=== PATIENT | female | born 1965 | race Caucasian/White ===

== ENCOUNTER 2019-08-15 14:35 | Emergency (ER) | payer MEDICAID ==
[~2019-08-15] VITALS: Ht 162.6 cm; Wt 79.4 kg
[~2019-08-15 14:35] MED LIST: AMLO2.5T7 PO; BENA5TAB5 PO; FURO40TA4 PO; GLIP5TAB12 PO; LEV100T PO; NAPR-223 PO
[2019-08-15 15:22] LABS: Basophils # (auto) 0 uL; Basophils % (auto) 0.5 % (0.0-2.0); Eosinophils # (auto) 0.4 uL; Eosinophils % (auto) 7.1 % (0.0-7.0); Hematocrit 43.9 % (36.0-46.0); Hemoglobin 14.8 g/dL (12.2-16.2); Lymphocytes # (auto) 1.4 uL; Lymphocytes % (auto) 25.2 % (10.0-50.0); Mean Corpuscular Hemoglobin 29.7 pg (28.0-32.0); Mean Corpuscular Hgb Conc. 33.7 g/dL (32.0-36.0); Mean Corpuscular Volume 88.3 fL (80.0-100.0); Monocytes # (auto) 0.5 uL; Monocytes % (auto) 8.6 % (0.0-12.0); Neutrophils # (auto) 3.3 uL; Neutrophils % (auto) 58.6 % (37.0-80.0); Nucleated Red Blood Cells % 0.1 %; Platelet Count (auto) 188 10^3/uL (140-450); Red Blood Cells 4.97 10^6/uL (4.0-5.20); Red Cell Distribution Width 13.9 % (11.8-14.3); White Blood Cell 5.6 10^3/uL (4.4-10.8)
[2019-08-15 15:34] LABS: Albumin 3.7 g/dL (3.4-5.0); Calcium 8.4 mg/dL (8.5-10.1); Potassium 3.8 mmol/L (3.5-5.1)
[2019-08-15 15:36] LABS: BUN/Creatinine Ratio 16.3
[2019-08-15 15:38] LABS: Bilirubin, Total 0.3 mg/dL (0.2-1.0)
[2019-08-15] MEDS ORDERED: ACETAMINOPHEN 325 MG TAB PO ONE (18:00)
[2019-08-15 18:28] LABS: Alcohol, Urine < 3.0 mg/dL (0-5); Amphetamine Screen, Urine NEGATIVE (NEGATIVE); Barbiturate Scree,Urine NEGATIVE (NEGATIVE); Benzodiazephine Screen, Urine NEGATIVE (NEGATIVE); Cannabinoid Screen, Urine NEGATIVE (NEGATIVE); Cocaine Screen, Urine NEGATIVE (NEGATIVE); Opiate Scree,Urine NEGATIVE (NEGATIVE); Phencyclidine Screen, Urine NEGATIVE (NEGATIVE)
[2019-08-15 19:00] VITALS: BP 131/77
[2019-08-15] MEDS ORDERED: THIAMINE 100mg/ml INJ (200mg/2ml VIAL) IV ONE (19:15)
[2019-08-15] MEDS ORDERED: THIAMINE HCL 100 MG TAB PO ONE (20:15)
== END 2019-08-15 20:15 | disposition home or self-care (01) ==
LOC: ER 14:42
DX: S16.1XXA Strain of muscle, fascia and tendon at neck level, initial encounter (principal); M50.30 Other cervical disc degeneration, unspecified cervical region; F10.20 Alcohol dependence, uncomplicated; R55 Syncope and collapse; F32.9 Major depressive disorder, single episode, unspecified; E11.9 Type 2 diabetes mellitus without complications; I10 Essential (primary) hypertension; E07.9 Disorder of thyroid, unspecified; F17.210 Nicotine dependence, cigarettes, uncomplicated; Y90.0 Blood alcohol level of less than 20 mg/100 ml
CPT/HCPCS: 36415; 70450; 72125; 80053; 80307; 80320; 85025; 94761

== ENCOUNTER → 2020-01-23 | Emergency (ER) | payer MEDICAID ==
[~2020-01-23] VITALS: Ht 162.6 cm; Wt 86.2 kg
[2020-01-23 11:34] VITALS: BP 167/111
[2020-01-23 12:19] LABS: Basophils # (auto) 0.1 10 ^3/uL (0-0.2); Basophils % (auto) 1.2 % (0.0-2.0); Eosinophils # (auto) 0.1 10 ^3/uL (0-0.8); Eosinophils % (auto) 2.9 % (0.0-7.0); Hematocrit 43.6 % (36.0-46.0); Hemoglobin 15.3 g/dL (12.2-16.2); Lymphocytes # (auto) 1.3 10 ^3/uL (0.4-5.4); Lymphocytes % (auto) 30.4 % (10.0-50.0); Mean Corpuscular Hemoglobin 32.6 pg (28.0-32.0); Mean Corpuscular Volume 93.2 fL (80.0-100.0); Monocytes # (auto) 0.4 10 ^3/uL (0-1.3); Neutrophils # (auto) 2.5 10 ^3/uL (1.6-8.6); Neutrophils % (auto) 57.5 % (37.0-80.0); Platelet Count (auto) 149 10^3/uL (140-450); Red Blood Cells 4.68 10^6/uL (4.0-5.20); Red Cell Distribution Width 13.5 % (11.8-14.3); White Blood Cell 4.4 10^3/uL (4.4-10.8)
[2020-01-23 12:41] LABS: Albumin 3.6 g/dL (3.4-5.0); Calcium 8.4 mg/dL (8.5-10.1); Potassium 3.9 mmol/L (3.5-5.1)
[2020-01-23 12:44] LABS: BUN/Creatinine Ratio 13.7; Bilirubin, Total 0.4 mg/dL (0.2-1.0); Total Protein 7.3 g/dL (6.4-8.2)
== END | disposition home or self-care (01) ==
LOC: ER 11:11
DX: J20.9 Acute bronchitis, unspecified (principal); E11.9 Type 2 diabetes mellitus without complications; I10 Essential (primary) hypertension; Z79.899 Other long term (current) drug therapy
CPT/HCPCS: 36415; 71045; 80053; 85025; 85379; 87070; 87804; 87880; 93005

== ENCOUNTER → 2020-04-01 | Emergency (ER) | payer MEDICAID ==
[~2020-04-01] VITALS: Ht 162.6 cm; Wt 86.2 kg
[~2020-04-01] MED LIST changes: +SODIUM CHLORIDE 0.9% 1,000 ML IV ONE; +cefTRIAXone 1GM/50ML D5W 50 ML IV ONE
[2020-04-01 22:18] LABS: Basophils # (auto) 0 10 ^3/uL (0-0.2); Basophils % (auto) 0.8 % (0.0-2.0); Eosinophils # (auto) 0.1 10 ^3/uL (0-0.8); Eosinophils % (auto) 2.2 % (0.0-7.0); Hematocrit 46.7 % (36.0-46.0); Hemoglobin 15.4 g/dL (12.2-16.2); Lymphocytes # (auto) 1.1 10 ^3/uL (0.4-5.4); Lymphocytes % (auto) 24.8 % (10.0-50.0); Mean Corpuscular Hemoglobin 32.1 pg (28.0-32.0); Mean Corpuscular Hgb Conc. 33.1 g/dL (32.0-36.0); Monocytes # (auto) 0.3 10 ^3/uL (0-1.3); Monocytes % (auto) 7.6 % (0.0-12.0); Neutrophils # (auto) 2.8 10 ^3/uL (1.6-8.6); Neutrophils % (auto) 64.6 % (37.0-80.0); Nucleated Red Blood Cells % 0.1 %; Platelet Count (auto) 151 10^3/uL (140-450); Red Blood Cells 4.81 10^6/uL (4.0-5.20); Red Cell Distribution Width 13.9 % (11.8-14.3); White Blood Cell 4.4 10^3/uL (4.4-10.8)
[2020-04-01 22:29] LABS: Urine Bacteria FEW /hpf (None Seen); Urine Blood TRACE /uL (Negative); Urine Specific Gravity 1.036 (1.001-1.035); Urine WBC 15 /hpf (0 - 5)
[2020-04-01 22:37] LABS: Chloride 104 mmol/L (98-107); Sodium 135 mmol/L (136-145)
[2020-04-01 22:42] LABS: Alanine Aminotransferase 117 U/L (13-56); Albumin 3.8 g/dL (3.4-5.0); Anion Gap 12 (5-15); Aspartate Aminotransferase 87 U/L (15-37); BUN/Creatinine Ratio 12.5; Blood Urea Nitrogen 11 mg/dL (7-18); Calcium 8.8 mg/dL (8.5-10.1); Carbon Dioxide 19 mmol/L (21-32); GFR African American 86 mL/min; GFR Non-African American 71 mL/min; Glucose 292 mg/dL (74-106)
[2020-04-01 22:46] LABS: Lactic Acid w/Reflex 2.2 mmol/L (0.4-2.0)
[2020-04-01 22:56] LABS: Alkaline Phosphatase 125 U/L (45-117); Bilirubin, Total 0.5 mg/dL (0.2-1.0); Total Protein 7.4 g/dL (6.4-8.2)
[2020-04-02 01:00] VITALS: BP 148/68
== END | disposition home or self-care (01) ==
LOC: ER 20:02
DX: B34.9 Viral infection, unspecified (principal); N39.0 Urinary tract infection, site not specified; Z20.828 Contact with and (suspected) exposure to other viral communicable diseases; E11.9 Type 2 diabetes mellitus without complications; I10 Essential (primary) hypertension; E07.9 Disorder of thyroid, unspecified; F17.210 Nicotine dependence, cigarettes, uncomplicated
CPT/HCPCS: 36415; 71045; 80053; 81001; 82728; 83605; 84484; 85025; 86141; 87040; 87070; 87635; 87804; 87880; 96365; 99284; J0696; J7030; U0003

== ENCOUNTER 2020-08-24 17:24 | Emergency (ER) | payer MEDICAID ==
[~2020-08-24] VITALS: Ht 162.6 cm; Wt 90.3 kg
[~2020-08-24 17:24] MED LIST changes: +AMLO-483 PO; -AMLO2.5T7 PO; -SODIUM CHLORIDE 0.9% 1,000 ML IV ONE; -cefTRIAXone 1GM/50ML D5W 50 ML IV ONE
[2020-08-24 17:50] VITALS: BP 125/71
[2020-08-24] MEDS ORDERED: SODIUM CHLORIDE 0.9% 1,000 ML IV ONE (18:30)
[2020-08-24] MEDS ORDERED: PANTOPRAZOLE 40 MG/10 ML VIAL INJ IV ONE (18:30)
== END 2020-08-24 20:00 | disposition left against medical advice (07) ==
LOC: ER 17:24
DX: K92.2 Gastrointestinal hemorrhage, unspecified (principal); E11.65 Type 2 diabetes mellitus with hyperglycemia; I10 Essential (primary) hypertension; F17.210 Nicotine dependence, cigarettes, uncomplicated; Z86.2 Personal history of diseases of the blood and blood-forming organs and certain disorders involving the immune mechanism; Z98.890 Other specified postprocedural states; Z79.899 Other long term (current) drug therapy; Z88.2 Allergy status to sulfonamides
CPT/HCPCS: 93005

== ENCOUNTER 2022-02-05 11:06 | Inpatient (IN) | payer MEDICAID ==
[~2022-02-05] VITALS: Ht 162.6 cm; Wt 86.8 kg
[~2022-02-05 11:06] MED LIST changes: -BENA5TAB5 PO; +BENA5TAB9 PO
[2022-02-05] MEDS ORDERED: LACTATED RINGER'S 1,000 ML IV ONE ×3 (12:30→15:15)
[2022-02-05 13:14] LABS: Red Cell Distribution Width 13.9 % (11.8-14.3)
[2022-02-05 13:16] LABS: Hematocrit 47.8 % (36.0-46.0); Hemoglobin 15.2 g/dL (12.2-16.2); Mean Corpuscular Hemoglobin 35.7 pg (28.0-32.0); Mean Corpuscular Hgb Conc. 31.8 g/dL (32.0-36.0); Mean Corpuscular Volume 112.1 fL (80.0-100.0); Red Blood Cells 4.27 10^6/uL (4.0-5.20); White Blood Cell 10.5 10^3/uL (4.4-10.8)
[2022-02-05 13:26] LABS: Basophils % (manual) 0 (0.0-2.0); Blast Cells 0; Eosinophils % (manual) 0 (0-7); Myelocytes % 0; Promyelocytes % 0; Reactive Lymphocytes 0
[2022-02-05 13:29] LABS: Albumin 4.1 g/dL (3.4-5.0); BUN/Creatinine Ratio 13.1; Calcium 9.1 mg/dL (8.5-10.1); Potassium 4.8 mmol/L (3.5-5.1)
[2022-02-05 13:32] LABS: Bilirubin, Total 4.4 mg/dL (0.2-1.0); Total Protein 7.9 g/dL (6.4-8.2)
[2022-02-05 14:08] LABS: Band Neutrophils % (manual) 36; Lymphocytes % (manual) 8 (10.0-50.0); Metamyelocytes % 1; Monocytes % (manual) 13 (0-12)
[2022-02-05] MEDS ORDERED: ONDANSETRON HCL 4 MG/2 ML VIAL IV ONE (15:15)
[2022-02-05] MEDS ORDERED: DEXTROSE (50%) 50ML SYRG IV PRN (15:30)
[2022-02-05] MEDS ORDERED: INSULIN LANTUS (GLARGINE) 1 /0.01ml (100units/ml) SC ONE (15:30)
[2022-02-05] MEDS: InsuLIN R (HUMAN) 100 UNITS in SODIUM CHL 0.9% 99 ML IV SCH (16:17)
[2022-02-05] MEDS ORDERED: ACCU-CHEK COMFORT CURVE STRIP VI SCH (16:30)
[2022-02-05 16:36] LABS: BUN/Creatinine Ratio 16.3; Calcium 8.8 mg/dL (8.5-10.1); Potassium 4.6 mmol/L (3.5-5.1)
[2022-02-05] MEDS ORDERED: NITROGLYCERIN 0.4 MG SL TAB SL PRN (17:00)
[2022-02-05] MEDS ORDERED: MORPHINE SULFATE INJECTION 2 MG/ML SYRG IV PRN ×2 (17:00→18:45)
[2022-02-05] MEDS ORDERED: LORazepam 2MG/ML-1ML VIAL IV ONE (17:30)
[2022-02-05] MEDS ORDERED: PANTOPRAZOLE 40 MG/10 ML VIAL INJ IV ONE (17:30)
[2022-02-05] MEDS: SODIUM CHLORIDE 0.9% 1,000 ML IV SCH ×2 (17:42→22:03)
[2022-02-05] MEDS: ACCU-CHEK COMFORT CURVE STRIP VI SCH ×4 (18:02→22:54)
[2022-02-05] MEDS ORDERED: LORazepam 0.5 MG TAB PO PRN (18:45)
[2022-02-05] MEDS ORDERED: cefTRIAXone 1GM/50ML D5W 50 ML IV ONE (18:45)
[2022-02-05] MEDS ORDERED: hydrALAZINE HCL 20 MG/ML VL IV PRN (18:45)
[2022-02-05] MEDS ORDERED: SODIUM CHLORIDE 0.9% 2,000 ML IV ONE (18:45)
[2022-02-05] MEDS ORDERED: SOD CHL 0.9%/ KCL 20MEQ 1,000 ML IV PRN (18:45)
[2022-02-05] MEDS ORDERED: THIAMINE 100mg/ml INJ (200mg/2ml VIAL) IV ONE (18:45)
[2022-02-05] MEDS ORDERED: HYDROcodone-ACET 5/325MG TAB PO PRN (18:45)
[2022-02-05] MEDS ORDERED: ONDANSETRON HCL 4 MG/2 ML VIAL IV PRN (18:45)
[2022-02-05] MEDS ORDERED: DOCUSATE SOD 100 MG CAP PO PRN (18:45)
[2022-02-05] MEDS ORDERED: FOLIC ACID 1 MG TAB PO ONE (18:45)
[2022-02-05] MEDS ORDERED: MULTIPLE VITAMINS W/ MINERALS TAB PO ONE (18:45)
[2022-02-05 19:07] LABS: Magnesium 2.3 mg/dL (1.6-2.6); Phosphorus 4.6 mg/dL (2.5-4.90)
[2022-02-05] MEDS: chlordiazePOXIDE HCL 25 MG CAP PO SCH (20:00)
[2022-02-05 20:38] LABS: INR 1.17 (0.9-1.15); Partial Thromboplastin Time 26.8 sec (23.6-33.0)
[2022-02-05] MEDS ORDERED: ATORVASTATIN 20 MG TAB PO SCH (22:00)
[2022-02-05 23:53] LABS: BUN/Creatinine Ratio 18.7; Calcium 8.4 mg/dL (8.5-10.1); Potassium 3.9 mmol/L (3.5-5.1)
[2022-02-06] VITALS (68 sets, daily range): BP systolic 103–158; BP diastolic 39–87
[2022-02-06] MEDS: ACCU-CHEK COMFORT CURVE STRIP VI SCH ×15 (00:09→23:19)
[2022-02-06 01:53] LABS: Calcium 8.3 mg/dL (8.5-10.1); Potassium 3.8 mmol/L (3.5-5.1)
[2022-02-06] MEDS: SODIUM CHLORIDE 0.9% 1,000 ML IV SCH ×5 (03:01→23:12)
[2022-02-06] MEDS ORDERED: dilTIAZem 25 MG/5 ML VIAL IV ONE (04:30)
[2022-02-06] MEDS ORDERED: CLINDAMYCIN 600MG IV 50 ML IV SCH (06:00)
[2022-02-06 06:10] LABS: Basophils # (auto) 0 10 ^3/uL (0-0.2); Eosinophils # (auto) 0 10 ^3/uL (0-0.8); Lymphocytes # (auto) 0.1 10 ^3/uL (0.4-5.4); Monocytes # (auto) 0.5 10 ^3/uL (0-1.3); Neutrophils # (auto) 3.8 10 ^3/uL (1.6-8.6); White Blood Cell 4.4 10^3/uL (4.4-10.8)
[2022-02-06 06:12] LABS: Basophils % (auto) 0.1 % (0.0-2.0); Eosinophils % (auto) 0.1 % (0.0-7.0); Hematocrit 42.3 % (36.0-46.0); Hemoglobin 14.7 g/dL (12.2-16.2); Mean Corpuscular Hemoglobin 36.4 pg (28.0-32.0); Mean Corpuscular Hgb Conc. 34.7 g/dL (32.0-36.0); Mean Corpuscular Volume 105.1 fL (80.0-100.0); Monocytes % (auto) 11.5 % (0.0-12.0); Neutrophils % (auto) 86.3 % (37.0-80.0); Nucleated Red Blood Cells % 0.3 %; Red Blood Cells 4.02 10^6/uL (4.0-5.20); Red Cell Distribution Width 13.5 % (11.8-14.3)
[2022-02-06 06:33] LABS: Magnesium 1.4 mg/dL (1.6-2.6); Potassium 3.1 mmol/L (3.5-5.1)
[2022-02-06 06:36] LABS: INR 1.21 (0.9-1.15)
[2022-02-06 06:46] LABS: Albumin 3.4 g/dL (3.4-5.0); Bilirubin, Total 3.5 mg/dL (0.2-1.0); CRP High Sensitivity 15.3 mg/dL (< 0.3); Calcium 8.8 mg/dL (8.5-10.1); Total Protein 6.7 g/dL (6.4-8.2); Uric Acid 6.3 mg/dL (2.6-6.0)
[2022-02-06 06:50] LABS: Phosphorus 0.2 mg/dL (2.5-4.90)
[2022-02-06] MEDS: chlordiazePOXIDE HCL 25 MG CAP PO SCH ×3 (07:46→21:08)
[2022-02-06] MEDS ORDERED: cefTRIAXone 1GM/50ML D5W 50 ML IV SCH (09:00)
[2022-02-06] MEDS: CHOLECALCIFEROL (VITD3) 2,000 UNIT CAP/TAB PO SCH (09:10)
[2022-02-06] MEDS: ASPirin 81 mg TAB PO SCH (09:10)
[2022-02-06] MEDS: THIAMINE HCL 100 MG TAB PO SCH (09:10)
[2022-02-06] MEDS: FOLIC ACID 1 MG TAB PO SCH (09:10)
[2022-02-06] MEDS: MULTIPLE VITAMINS W/ MINERALS TAB PO SCH (09:10)
[2022-02-06 09:15] LABS: Urine WBC None Seen /hpf (0 - 5)
[2022-02-06 09:34] LABS: Urine Amorphous Crystal FEW /hpf (None Seen); Urine Bacteria FEW /hpf (None Seen); Urine Blood 1+ /uL (Negative); Urine Budding Yeast FEW /hpf (None Seen); Urine Specific Gravity 1.011 (1.001-1.035)
[2022-02-06] MEDS ORDERED: INSULIN LANTUS (GLARGINE) 1 /0.01ml (100units/ml) SC SCH (10:00)
[2022-02-06] MEDS ORDERED: PANTOPRAZOLE 40 MG/10 ML VIAL INJ IV SCH (10:00)
[2022-02-06] MEDS ORDERED: ENOXAPARIN SOD 40 MG/0.4 ML SYRINGE SC SCH (10:00)
[2022-02-06 10:06] LABS: Alcohol, Urine < 3.0 mg/dL (0-10); Amphetamine Screen, Urine NEGATIVE (NEGATIVE); Barbiturate Scree,Urine NEGATIVE (NEGATIVE); Benzodiazephine Screen, Urine NEGATIVE (NEGATIVE); Cannabinoid Screen, Urine NEGATIVE (NEGATIVE); Cocaine Screen, Urine NEGATIVE (NEGATIVE); Opiate Scree,Urine NEGATIVE (NEGATIVE); Phencyclidine Screen, Urine NEGATIVE (NEGATIVE); Protein, Urine 93.3 mg/dL (0.0-11.9)
[2022-02-06 10:56] LABS: Calcium 8.4 mg/dL (8.5-10.1)
[2022-02-06 11:00] LABS: BUN/Creatinine Ratio 16.3
[2022-02-06 11:04] LABS: Potassium 2.8 mmol/L (3.5-5.1)
[2022-02-06] MEDS ORDERED: POTASSIUM EFFERVESENT TAB 25 MEQ PO ONE (11:15)
[2022-02-06] MEDS ORDERED: CYA100I PO (13:38)
[2022-02-06] MEDS ORDERED: METF-370 PO (13:38)
[2022-02-06] MEDS ORDERED: ALOG1TAB2 PO (13:38)
[2022-02-06] MEDS ORDERED: GABA300C10 PO (13:38)
[2022-02-06] MEDS ORDERED: CHOL20007 PO (13:38)
[2022-02-06] MEDS ORDERED: PIOG15TA25 PO (13:38)
[2022-02-06] MEDS ORDERED: SENN1TAB14 PO (13:38)
[2022-02-06] MEDS ORDERED: MAGN400T40 OR (13:38)
[2022-02-06] MEDS ORDERED: BUPR75TA10 PO (13:38)
[2022-02-06] MEDS ORDERED: NUTRTAB41 OR (13:38)
[2022-02-06] MEDS ORDERED: BENA20TA14 PO (13:38)
[2022-02-06] MEDS ORDERED: VITA80009 PO (13:38)
[2022-02-06] MEDS ORDERED: ERTU5TAB PO (13:38)
[2022-02-06 14:08] LABS: Hepatitis B Surface Antibody Negative (Negative)
[2022-02-06 14:46] LABS: Hepatitis A Total Antibody Positive (Negative)
[2022-02-06] MEDS: InsuLIN R (HUMAN) 100 UNITS in SODIUM CHL 0.9% 99 ML IV SCH (15:30)
[2022-02-06 16:10] LABS: Hepatitis C Antibody Negative (Negative)
[2022-02-06 16:55] LABS: Calcium 8.4 mg/dL (8.5-10.1); Magnesium 1.8 mg/dL (1.6-2.6)
[2022-02-06 17:00] LABS: Phosphorus 0.4 mg/dL (2.5-4.90); Potassium 2.8 mmol/L (3.5-5.1)
[2022-02-06] MEDS ORDERED: SODIUM PHOSPHATES 20 MEQ in SODIUM CHL 0.9% 100 ML IV ONE (17:30)
[2022-02-06] MEDS: POTASSIUM CHL 20MEQ/100ML 100 ML IV SCH ×2 (18:18→21:06)
[2022-02-06] MEDS ORDERED: DEXTROSE (50%) 50ML SYRG IV PRN (18:30)
[2022-02-06] MEDS: InsuLIN REG 1unit/0.01ml Soln (100units/ml) SC SCH ×2 (19:39→23:19)
[2022-02-06] MEDS: LORazepam 2MG/ML-1ML VIAL IV PRN (22:26)
[2022-02-07] VITALS (58 sets, daily range): BP systolic 107–162; BP diastolic 39–88
[2022-02-07] MEDS: ACCU-CHEK COMFORT CURVE STRIP VI SCH ×5 (03:13→20:00)
[2022-02-07] MEDS: InsuLIN REG 1unit/0.01ml Soln (100units/ml) SC SCH ×5 (03:14→20:00)
[2022-02-07] MEDS: SODIUM CHLORIDE 0.9% 1,000 ML IV SCH ×4 (04:00→19:00)
[2022-02-07] MEDS: LORazepam 2MG/ML-1ML VIAL IV PRN ×2 (04:22→22:24)
[2022-02-07 04:34] LABS: Hemoglobin 14.4 g/dL (12.2-16.2); Mean Corpuscular Hemoglobin 36.1 pg (28.0-32.0); Red Cell Distribution Width 13.7 % (11.8-14.3)
[2022-02-07 04:35] LABS: Hematocrit 42.2 % (36.0-46.0); Mean Corpuscular Volume 106.1 fL (80.0-100.0); Red Blood Cells 3.98 10^6/uL (4.0-5.20); White Blood Cell 5.7 10^3/uL (4.4-10.8)
[2022-02-07 04:38] LABS: Albumin 2.7 g/dL (3.4-5.0); Calcium 8.2 mg/dL (8.5-10.1); Potassium 3.7 mmol/L (3.5-5.1)
[2022-02-07 04:42] LABS: BUN/Creatinine Ratio 17.6; Bilirubin, Direct 1.6 mg/dL (0-0.2); Bilirubin, Total 2.3 mg/dL (0.2-1.0)
[2022-02-07 04:49] LABS: Basophils % (manual) 0 (0.0-2.0); Blast Cells 0; Eosinophils % (manual) 0 (0-7); Myelocytes % 0; Promyelocytes % 0; Reactive Lymphocytes 0
[2022-02-07 05:13] LABS: Band Neutrophils % (manual) 41; Lymphocytes % (manual) 11 (10.0-50.0); Metamyelocytes % 2; Monocytes % (manual) 18 (0-12)
[2022-02-07] MEDS ORDERED: SODIUM PHOSPHATES 40 MEQ in D5W 5% 250 ML IV ONE (08:00)
[2022-02-07] MEDS ORDERED: POTASSIUM PHOSPHATE 44 MEQ in D5W 5% 250 ML IV ONE (08:30)
[2022-02-07] MEDS ORDERED: POTASSIUM PHOSPHATE 22 MEQ in SODIUM CHL 0.9% 100 ML IV ONE (08:30)
[2022-02-07] MEDS ORDERED: D5W 5% IV ONE ×2 (08:45)
[2022-02-07] MEDS ORDERED: POTASSIUM PHOSPHATE IV ONE ×2 (08:45)
[2022-02-07] MEDS: ASPirin 81 mg TAB PO SCH (09:55)
[2022-02-07] MEDS: FAMOTIDINE 20 MG TAB PO SCH (09:56)
[2022-02-07] MEDS: chlordiazePOXIDE HCL 25 MG CAP PO SCH ×2 (09:56→21:51)
[2022-02-07] MEDS: MULTIPLE VITAMINS W/ MINERALS TAB PO SCH (09:56)
[2022-02-07] MEDS: THIAMINE HCL 100 MG TAB PO SCH (09:56)
[2022-02-07] MEDS: CHOLECALCIFEROL (VITD3) 2,000 UNIT CAP/TAB PO SCH (09:56)
[2022-02-07] MEDS: FOLIC ACID 1 MG TAB PO SCH (09:57)
[2022-02-07] MEDS ORDERED: LEVOTHYROXINE SODIUM 100 MCG/5 ML INJ IV ONE (15:00)
[2022-02-07] MEDS ORDERED: ERGOCALCIFEROL 50,000 UNIT(1.25MG) CAP PO SCH (15:00)
[2022-02-07] MEDS: D5W/SOD CHLO 0.9% 1,000 ML IV PRN (20:34)
[2022-02-08] VITALS (23 sets, daily range): BP systolic 124–178; BP diastolic 60–104
[2022-02-08] MEDS: ACCU-CHEK COMFORT CURVE STRIP VI SCH ×6 (00:22→20:00)
[2022-02-08] MEDS: InsuLIN REG 1unit/0.01ml Soln (100units/ml) SC SCH ×6 (00:27→20:00)
[2022-02-08] MEDS: D5W/SOD CHLO 0.9% 1,000 ML IV PRN ×3 (02:52→17:16)
[2022-02-08 04:11] LABS: Basophils # (auto) 0 10 ^3/uL (0-0.2); Eosinophils # (auto) 0 10 ^3/uL (0-0.8); Eosinophils % (auto) 0.4 % (0.0-7.0); Lymphocytes # (auto) 0.4 10 ^3/uL (0.4-5.4); Monocytes # (auto) 0.4 10 ^3/uL (0-1.3); Neutrophils # (auto) 2.7 10 ^3/uL (1.6-8.6); White Blood Cell 3.5 10^3/uL (4.4-10.8)
[2022-02-08 04:13] LABS: Basophils % (auto) 0.3 % (0.0-2.0); Hematocrit 34.6 % (36.0-46.0); Hemoglobin 11.9 g/dL (12.2-16.2); Lymphocytes % (auto) 10.6 % (10.0-50.0); Mean Corpuscular Hgb Conc. 34.3 g/dL (32.0-36.0); Mean Corpuscular Volume 104.8 fL (80.0-100.0); Monocytes % (auto) 12.3 % (0.0-12.0); Neutrophils % (auto) 76.4 % (37.0-80.0); Nucleated Red Blood Cells % 0.1 %; Red Cell Distribution Width 13.4 % (11.8-14.3)
[2022-02-08] MEDS: LORazepam 2MG/ML-1ML VIAL IV PRN ×2 (04:32→19:21)
[2022-02-08 04:35] LABS: INR 1.16 (0.9-1.15)
[2022-02-08 04:36] LABS: Albumin 2.5 g/dL (3.4-5.0); BUN/Creatinine Ratio 13.8; Calcium 7.9 mg/dL (8.5-10.1); Magnesium 1.8 mg/dL (1.6-2.6)
[2022-02-08 04:50] LABS: Bilirubin, Total 1.9 mg/dL (0.2-1.0); Total Protein 5.3 g/dL (6.4-8.2)
[2022-02-08] MEDS: SODIUM CHLORIDE 0.9% 1,000 ML IV SCH ×4 (05:00→15:00)
[2022-02-08 05:02] LABS: Phosphorus 0.8 mg/dL (2.5-4.90)
[2022-02-08] MEDS ORDERED: POTASSIUM PHOSPHATE 44 MEQ in D5W 5% 250 ML IV ONE (08:15)
[2022-02-08] MEDS ORDERED: POTASSIUM CHL 20 Meq TABLET PO ONE (08:15)
[2022-02-08] MEDS: FAMOTIDINE 20 MG TAB PO SCH (09:09)
[2022-02-08] MEDS: MAGNESIUM SULFATE 1GM/100ML 100 ML IV SCH ×2 (09:09→11:15)
[2022-02-08] MEDS: LEVOTHYROXINE SODIUM 100 MCG/5 ML INJ IV SCH (09:09)
[2022-02-08] MEDS: FOLIC ACID 1 MG TAB PO SCH (09:10)
[2022-02-08] MEDS: ASPirin 81 mg TAB PO SCH (09:10)
[2022-02-08] MEDS: THIAMINE HCL 100 MG TAB PO SCH (09:10)
[2022-02-08] MEDS: CHOLECALCIFEROL (VITD3) 2,000 UNIT CAP/TAB PO SCH (09:11)
[2022-02-08] MEDS: MULTIPLE VITAMINS W/ MINERALS TAB PO SCH (09:11)
[2022-02-08] MEDS: chlordiazePOXIDE HCL 25 MG CAP PO SCH (09:11)
[2022-02-09] MEDS: ACCU-CHEK COMFORT CURVE STRIP VI SCH ×7 (00:02→23:56)
[2022-02-09] MEDS: InsuLIN REG 1unit/0.01ml Soln (100units/ml) SC SCH ×7 (00:03→23:56)
[2022-02-09] MEDS: LORazepam 2MG/ML-1ML VIAL IV PRN ×2 (01:56→23:55)
[2022-02-09 05:00] VITALS: BP 139/80
[2022-02-09 05:35] LABS: Mean Corpuscular Volume 103.9 fL (80.0-100.0); White Blood Cell 3.5 10^3/uL (4.4-10.8)
[2022-02-09 05:43] LABS: Hematocrit 34.3 % (36.0-46.0); Hemoglobin 11.8 g/dL (12.2-16.2); Mean Corpuscular Hemoglobin 35.7 pg (28.0-32.0); Mean Corpuscular Hgb Conc. 34.4 g/dL (32.0-36.0); Red Cell Distribution Width 14.1 % (11.8-14.3)
[2022-02-09 05:46] LABS: Basophils % (manual) 0 (0.0-2.0); Blast Cells 0; Myelocytes % 0; Promyelocytes % 0; Reactive Lymphocytes 0
[2022-02-09 06:09] LABS: BUN/Creatinine Ratio 14.7; Calcium 8.2 mg/dL (8.5-10.1); Magnesium 2.1 mg/dL (1.6-2.6); Phosphorus 1.4 mg/dL (2.5-4.90)
[2022-02-09 06:12] LABS: Potassium 2.8 mmol/L (3.5-5.1)
[2022-02-09] MEDS ORDERED: chlordiazePOXIDE HCL 25 MG CAP PO SCH (07:00)
[2022-02-09 07:59] LABS: Band Neutrophils % (manual) 20; Eosinophils % (manual) 1 (0-7); Lymphocytes % (manual) 20 (10.0-50.0); Metamyelocytes % 2; Monocytes % (manual) 13 (0-12)
[2022-02-09 08:34] VITALS: BP 129/70
[2022-02-09] MEDS: MULTIPLE VITAMINS W/ MINERALS TAB PO SCH (10:26)
[2022-02-09] MEDS: LEVOTHYROXINE SODIUM 100 MCG/5 ML INJ IV SCH (10:26)
[2022-02-09] MEDS: ASPirin 81 mg TAB PO SCH (10:27)
[2022-02-09] MEDS: FOLIC ACID 1 MG TAB PO SCH (10:27)
[2022-02-09] MEDS: CHOLECALCIFEROL (VITD3) 2,000 UNIT CAP/TAB PO SCH (10:27)
[2022-02-09] MEDS: THIAMINE HCL 100 MG TAB PO SCH (10:27)
[2022-02-09] MEDS: FAMOTIDINE 20 MG TAB PO SCH (10:28)
[2022-02-09 12:41] VITALS: BP 143/84
[2022-02-09 17:14] VITALS: BP 148/68
[2022-02-09] MEDS: POTASSIUM CHL 20MEQ/100ML 100 ML IV SCH ×2 (19:37→23:01)
[2022-02-09 22:00] VITALS: BP 144/82
[2022-02-10] MEDS: ACCU-CHEK COMFORT CURVE STRIP VI SCH ×5 (03:49→20:41)
[2022-02-10] MEDS: POTASSIUM CHL 20MEQ/100ML 100 ML IV SCH ×2 (03:49→07:07)
[2022-02-10] MEDS: InsuLIN REG 1unit/0.01ml Soln (100units/ml) SC SCH ×5 (03:50→20:42)
[2022-02-10 05:22] VITALS: BP 155/92
[2022-02-10] MEDS: LEVOTHYROXINE SODIUM 100 MCG TAB PO SCH (07:07)
[2022-02-10 08:00] VITALS: BP 135/65
[2022-02-10] MEDS: THIAMINE HCL 100 MG TAB PO SCH (09:28)
[2022-02-10] MEDS: ASPirin 81 mg TAB PO SCH (09:28)
[2022-02-10] MEDS: MULTIPLE VITAMINS W/ MINERALS TAB PO SCH (09:29)
[2022-02-10] MEDS: FOLIC ACID 1 MG TAB PO SCH (09:29)
[2022-02-10] MEDS: CHOLECALCIFEROL (VITD3) 2,000 UNIT CAP/TAB PO SCH (09:29)
[2022-02-10] MEDS: FAMOTIDINE 20 MG TAB PO SCH (09:29)
[2022-02-10] MEDS ORDERED: POTASSIUM PHOSPHATE 26.4 MEQ in SODIUM CHL 0.9% 100 ML IV ONE (15:00)
[2022-02-10] MEDS ORDERED: POLYETHYLENE GLYCOL 17 GM PWDR PO ONE ×2 (18:05→18:06)
[2022-02-10 22:00] VITALS: BP 143/80
[2022-02-11] MEDS: InsuLIN REG 1unit/0.01ml Soln (100units/ml) SC SCH ×4 (00:21→11:54)
[2022-02-11] MEDS: ACCU-CHEK COMFORT CURVE STRIP VI SCH ×4 (00:27→11:52)
[2022-02-11 05:00] VITALS: BP 152/92
[2022-02-11 05:42] LABS: Potassium 3.4 mmol/L (3.5-5.1)
[2022-02-11 05:46] LABS: Albumin 2.4 g/dL (3.4-5.0); Calcium 8.8 mg/dL (8.5-10.1)
[2022-02-11 05:49] LABS: Bilirubin, Total 1.2 mg/dL (0.2-1.0); Total Protein 5.3 g/dL (6.4-8.2)
[2022-02-11] MEDS: LEVOTHYROXINE SODIUM 100 MCG TAB PO SCH (06:28)
[2022-02-11 09:05] VITALS: BP 143/81
[2022-02-11] MEDS: THIAMINE HCL 100 MG TAB PO SCH (10:05)
[2022-02-11] MEDS: ASPirin 81 mg TAB PO SCH (10:07)
[2022-02-11] MEDS: MULTIPLE VITAMINS W/ MINERALS TAB PO SCH (10:07)
[2022-02-11] MEDS: FOLIC ACID 1 MG TAB PO SCH (10:07)
[2022-02-11] MEDS: FAMOTIDINE 20 MG TAB PO SCH (10:08)
[2022-02-11] MEDS: CHOLECALCIFEROL (VITD3) 2,000 UNIT CAP/TAB PO SCH (10:08)
[2022-02-11] MEDS ORDERED: INSREGI SC ×2 (12:12→12:50)
[2022-02-11 13:00] VITALS: BP 138/78
[2022-02-11] MEDS ORDERED: SYRI25MI4 XX (13:32)
[2022-02-11 16:04] VITALS: BP 156/68
== END 2022-02-11 17:00 | disposition home health service (06) | DRG 420 ==
LOC: ER 11:11 → TELE 16:51 → ICU WEST 02-06 06:03 → TELE-WESTW 02-08 22:00
PROVIDERS: ADMIT Hospitalist; ATTEND Internal Medicine
DX: E11.10 Type 2 diabetes mellitus with ketoacidosis without coma (principal); N17.0 Acute kidney failure with tubular necrosis; G93.40 Encephalopathy, unspecified; K70.10 Alcoholic hepatitis without ascites; D69.6 Thrombocytopenia, unspecified; E66.01 Morbid (severe) obesity due to excess calories; E78.5 Hyperlipidemia, unspecified; F10.239 Alcohol dependence with withdrawal, unspecified; N39.0 Urinary tract infection, site not specified; R74.8 Abnormal levels of other serum enzymes; F32.A Depression, unspecified; R79.89 Other specified abnormal findings of blood chemistry; E87.6 Hypokalemia; I10 Essential (primary) hypertension; E55.9 Vitamin D deficiency, unspecified; Z20.822 Contact with and (suspected) exposure to COVID-19; F41.9 Anxiety disorder, unspecified; E03.9 Hypothyroidism, unspecified; Z80.0 Family history of malignant neoplasm of digestive organs; Z80.3 Family history of malignant neoplasm of breast; Z82.49 Family history of ischemic heart disease and other diseases of the circulatory system; Z68.32 Body mass index [BMI] 32.0-32.9, adult; Z79.899 Other long term (current) drug therapy; Z88.2 Allergy status to sulfonamides; Z91.013 Allergy to seafood
CPT/HCPCS: 36415; 36600; 70450; 71045; 76705; 80048; 80053; 80061; 80307; 81001; 82010; 82140; 82248; 82306; 82550; 82607; 82728; 82805; 82962; 83036; 83540; 83550; 83615; 83690; 83735; 83880; 83930; 84100; 84132; 84156; 84439; 84443; 84484; 84550; 85007; 85025; 85027; 85045; 85379; 85610; 85652; 85730; 86038; 86141; 86704; 86706; 86708; 86803; 87040; 87081; 87086; 87340; 92610; 93005; 93970; 96361; 96374; 97116; 97163; 97530; 99291; C9113; G0378; J0696; J1815; J2405; J3480; J3490; J7060

== ENCOUNTER 2023-02-24 10:29 | Inpatient (IN) | payer MEDICAID ==
[~2023-02-24] VITALS: Ht 162.6 cm; Wt 64.3 kg
[~2023-02-24 10:29] MED LIST changes: +ALOG1TAB2 PO; +BENA20TA14 PO; +BUPR75TA10 PO; +CHOL20007 PO; +CYA100I PO; +ERTU5TAB PO; +GABA300C10 PO; +INSREGI SC; +MAGN400T40 OR; +METF-370 PO; +NUTRTAB41 OR; +PIOG15TA25 PO; +SENN1TAB14 PO; +SYRI25MI4 XX; +VITA80009 PO
[2023-02-24] MEDS ORDERED: MORPHINE SULFATE 4 MG/ML SYR/VIAL IV ONE (11:30)
[2023-02-24] MEDS ORDERED: ONDANSETRON HCL 4 MG/2 ML VIAL IV ONE (11:30)
[2023-02-24] MEDS ORDERED: PANTOPRAZOLE 40 MG/10 ML VIAL INJ IV ONE (11:30)
[2023-02-24] MEDS ORDERED: SODIUM CHLORIDE 0.9% 1,000 ML IV ONE (11:30)
[2023-02-24 11:41] LABS: Basophils # (auto) 0 10 ^3/uL (0-0.2); Basophils % (auto) 0.4 % (0.0-2.0); Eosinophils # (auto) 0 10 ^3/uL (0-0.8); Hemoglobin 14.5 g/dL (12.2-16.2); Lymphocytes # (auto) 1.1 10 ^3/uL (0.4-5.4); Lymphocytes % (auto) 10.9 % (10.0-50.0); Mean Corpuscular Hemoglobin 31.7 pg (28.0-32.0); Mean Corpuscular Hgb Conc. 32.1 g/dL (32.0-36.0); Mean Corpuscular Volume 98.9 fL (80.0-100.0); Monocytes # (auto) 1.1 10 ^3/uL (0-1.3); Monocytes % (auto) 10.4 % (0.0-12.0); Neutrophils % (auto) 78.3 % (37.0-80.0); Nucleated Red Blood Cells % 0.1 %; Red Blood Cells 4.55 10^6/uL (4.0-5.20); Red Cell Distribution Width 14.8 % (11.8-14.3); White Blood Cell 10.2 10^3/uL (4.4-10.8)
[2023-02-24 11:54] LABS: Albumin 4.8 g/dL (3.4-5.0); Calcium 8.8 mg/dL (8.5-10.1); Potassium 4.3 mmol/L (3.5-5.1)
[2023-02-24 11:57] LABS: BUN/Creatinine Ratio 16.3 (10.0-20.0); Bilirubin, Total 1.9 mg/dL (0.2-1.0); Total Protein 8.1 g/dL (6.4-8.2)
[2023-02-24] MEDS ORDERED: DEXTROSE (50%) 50ML SYRG IV PRN (12:15)
[2023-02-24 12:45] LABS: Urine Bacteria NONE SEEN /hpf (None Seen); Urine Blood Negative /uL (Negative); Urine Specific Gravity 1.024 (1.001-1.035); Urine WBC 2 /hpf (0 - 5)
[2023-02-24 13:29] LABS: Magnesium 2.3 mg/dL (1.6-2.6); Phosphorus 5.7 mg/dL (2.5-4.90)
[2023-02-24] MEDS ORDERED: SODIUM BICARBONATE 8.4 % INJ 50ML VIAL IV ONE (13:30)
[2023-02-24] MEDS ORDERED: LORazepam 0.5 MG TAB PO PRN (13:30)
[2023-02-24] MEDS ORDERED: ONDANSETRON HCL 4 MG/2 ML VIAL IV PRN (13:30)
[2023-02-24] MEDS ORDERED: DOCUSATE SOD 100 MG CAP PO PRN (13:30)
[2023-02-24] MEDS ORDERED: ACETAMINOPHEN 325 MG TAB PO PRN (13:30)
[2023-02-24] MEDS ORDERED: SOD CHL 0.9%/ KCL 20MEQ 1,000 ML IV ONE (13:30)
[2023-02-24] MEDS: ACCU-CHEK COMFORT CURVE STRIP VI SCH ×8 (13:54→23:48)
[2023-02-24] MEDS: InsuLIN R (HUMAN) 100 UNITS in SODIUM CHL 0.9% 99 ML IV SCH (13:55)
[2023-02-24] MEDS: SODIUM CHLORIDE 0.9% 1,000 ML IV SCH ×2 (13:57→16:37)
[2023-02-24] MEDS: SODIUM CHLOR 0.9% PF (SALINE LOCK) 10ML VIAL/SYR IV SCH ×2 (14:10→21:49)
[2023-02-24 15:55] LABS: Calcium 8.1 mg/dL (8.5-10.1)
[2023-02-24] MEDS ORDERED: SODIUM CHLORIDE 0.9% 1,000 ML IV SCH ×2 (16:15→18:15)
[2023-02-24 18:34] LABS: BUN/Creatinine Ratio 20.4 (10.0-20.0); Calcium 7.9 mg/dL (8.5-10.1); Potassium 4.1 mmol/L (3.5-5.1)
[2023-02-24] MEDS: D5W/SOD CHLO 0.9% 1,000 ML IV SCH (21:45)
[2023-02-24 21:48] LABS: BUN/Creatinine Ratio 20.5 (10.0-20.0); Potassium 4.4 mmol/L (3.5-5.1)
[2023-02-24] MEDS: GABAPENTIN 300 MG CAP PO SCH (21:49)
[2023-02-25] MEDS: SOD CHL 0.9%/ KCL 20MEQ 1,000 ML IV SCH ×2 (00:11→08:35)
[2023-02-25] MEDS: ACCU-CHEK COMFORT CURVE STRIP VI SCH ×9 (01:32→13:39)
[2023-02-25 02:02] LABS: BUN/Creatinine Ratio 18.7 (10.0-20.0); Calcium 6.9 mg/dL (8.5-10.1); Potassium 3.7 mmol/L (3.5-5.1)
[2023-02-25] MEDS: D5W/SOD CHLO 0.9% 1,000 ML IV SCH ×2 (04:52→11:05)
[2023-02-25 05:48] LABS: Basophils # (auto) 0 10 ^3/uL (0-0.2); Basophils % (auto) 0.5 % (0.0-2.0); Eosinophils # (auto) 0 10 ^3/uL (0-0.8); Hematocrit 35.4 % (36.0-46.0); Hemoglobin 11.9 g/dL (12.2-16.2); Lymphocytes # (auto) 1.3 10 ^3/uL (0.4-5.4); Lymphocytes % (auto) 22.6 % (10.0-50.0); Mean Corpuscular Hemoglobin 31.8 pg (28.0-32.0); Mean Corpuscular Hgb Conc. 33.5 g/dL (32.0-36.0); Mean Corpuscular Volume 94.7 fL (80.0-100.0); Monocytes # (auto) 0.7 10 ^3/uL (0-1.3); Monocytes % (auto) 13.1 % (0.0-12.0); Neutrophils # (auto) 3.6 10 ^3/uL (1.6-8.6); Neutrophils % (auto) 63.8 % (37.0-80.0); Nucleated Red Blood Cells % 0.2 %; Red Blood Cells 3.74 10^6/uL (4.0-5.20); Red Cell Distribution Width 14.7 % (11.8-14.3); White Blood Cell 5.7 10^3/uL (4.4-10.8)
[2023-02-25] MEDS: SODIUM CHLOR 0.9% PF (SALINE LOCK) 10ML VIAL/SYR IV SCH (06:03)
[2023-02-25 06:04] LABS: Potassium 3.7 mmol/L (3.5-5.1)
[2023-02-25 06:07] LABS: INR 1.11 (0.9-1.15)
[2023-02-25 06:15] LABS: BUN/Creatinine Ratio 18.8 (10.0-20.0); Calcium 6.8 mg/dL (8.5-10.1); Magnesium 1.9 mg/dL (1.6-2.6)
[2023-02-25] MEDS ORDERED: INSULIN LANTUS (GLARGINE) 1 /0.01ml (100units/ml) SC ONE ×2 (06:45→13:30)
[2023-02-25] MEDS ORDERED: glipiZIDE 5 MG TAB PO SCH (07:00)
[2023-02-25] MEDS: InsuLIN REG 1unit/0.01ml Soln (100units/ml) SC SCH ×2 (08:35→08:36)
[2023-02-25] MEDS ORDERED: ALOGLIPTIN BENZOATE 25 MG PO SCH (10:00)
[2023-02-25] MEDS ORDERED: MAGNESIUM OXIDE 400 MG TAB PO SCH (10:00)
[2023-02-25] MEDS ORDERED: buPROPion HCL 75 MG TAB PO SCH (10:00)
[2023-02-25] MEDS ORDERED: NAPROXEN 500 MG TAB PO SCH (10:00)
[2023-02-25] MEDS ORDERED: LEVOTHYROXINE SODIUM 100 MCG TAB PO SCH (10:00)
[2023-02-25] MEDS ORDERED: amLODIPine BESYLATE 5 MG TAB PO SCH (10:00)
[2023-02-25] MEDS ORDERED: PATIENTS OWN MEDICATION (Magnesium Oxide 400 MG) OR SCH (10:00)
[2023-02-25] MEDS ORDERED: BENAZEPRIL HCL PO SCH (10:00)
[2023-02-25] MEDS ORDERED: metFORMIN HYDROCHLORIDE 500 MG TAB PO SCH (10:00)
[2023-02-25] MEDS ORDERED: SENNA 8.6 MG TAB PO SCH (10:00)
[2023-02-25] MEDS ORDERED: PATIENTS OWN MEDICATION (Cholecalciferol (Vitamin D3) 1 TAB) PO SCH (10:00)
[2023-02-25] MEDS ORDERED: ERTUGLIFLOZIN PO SCH (10:00)
[2023-02-25] MEDS ORDERED: PATIENTS OWN MEDICATION (Amlodipine Besylate 1 TAB) PO SCH (10:00)
[2023-02-25] MEDS ORDERED: PYROGLUTAMIC A PO SCH (10:00)
[2023-02-25] MEDS ORDERED: FUROSEMIDE 40 MG TAB PO SCH (10:00)
[2023-02-25] MEDS: GABAPENTIN 300 MG CAP PO SCH (10:14)
[2023-02-25] MEDS: InsuLIN R (HUMAN) 100 UNITS in SODIUM CHL 0.9% 99 ML IV SCH (12:15)
[2023-02-25 13:31] VITALS: BP 100/59
== END 2023-02-25 13:48 | disposition home or self-care (01) | DRG 420 ==
LOC: ER 10:29 → TELE 13:36
PROVIDERS: ADMIT Internal Medicine; ATTEND Internal Medicine
DX: E11.10 Type 2 diabetes mellitus with ketoacidosis without coma (principal); N17.0 Acute kidney failure with tubular necrosis; K92.2 Gastrointestinal hemorrhage, unspecified; D64.9 Anemia, unspecified; F41.9 Anxiety disorder, unspecified; I10 Essential (primary) hypertension; F32.A Depression, unspecified; Z80.9 Family history of malignant neoplasm, unspecified; Z82.49 Family history of ischemic heart disease and other diseases of the circulatory system; Z91.148 Patient's other noncompliance with medication regimen for other reason; Z88.2 Allergy status to sulfonamides; Z91.013 Allergy to seafood; Z79.899 Other long term (current) drug therapy; Z79.4 Long term (current) use of insulin
CPT/HCPCS: 36415; 36600; 51702; 71045; 76700; 80048; 80053; 81001; 82010; 82248; 82805; 82962; 83690; 83735; 83930; 84100; 85025; 85045; 85610; 86850; 86900; 86901; 93005; 96361; 96374; 96375; 99291; C9113; G0378; J1815; J2405

== ENCOUNTER 2023-03-20 15:29 | Inpatient (IN) | payer MEDICAID ==
[~2023-03-20] VITALS: Ht 162.6 cm; Wt 64.7 kg
[~2023-03-20 15:29] MED LIST changes: -AMLO-483 PO; +AMLO1TAB21 PO; +BENA-36 PO; -BENA20TA14 PO; -BUPR75TA10 PO; +BUPR75TA96 PO; +GABA-1250 PO; -GABA300C10 PO
[2023-03-20] MEDS ORDERED: ONDANSETRON HCL 4 MG/2 ML VIAL IV ONE (16:00)
[2023-03-20] MEDS ORDERED: SODIUM CHLORIDE 0.9% 1,000 ML IVB ONE (16:00)
[2023-03-20 16:21] LABS: Basophils # (auto) 0.1 10 ^3/uL (0-0.2); Basophils % (auto) 0.3 % (0.0-2.0); Eosinophils # (auto) 0 10 ^3/uL (0-0.8); Eosinophils % (auto) 0.1 % (0.0-7.0); Hematocrit 46.8 % (36.0-46.0); Lymphocytes # (auto) 0.7 10 ^3/uL (0.4-5.4); Lymphocytes % (auto) 3.5 % (10.0-50.0); Mean Corpuscular Hemoglobin 32.7 pg (28.0-32.0); Mean Corpuscular Hgb Conc. 32.1 g/dL (32.0-36.0); Mean Corpuscular Volume 102.1 fL (80.0-100.0); Monocytes # (auto) 1.4 10 ^3/uL (0-1.3); Monocytes % (auto) 7.5 % (0.0-12.0); Neutrophils # (auto) 16.6 10 ^3/uL (1.6-8.6); Neutrophils % (auto) 88.6 % (37.0-80.0); Red Blood Cells 4.58 10^6/uL (4.0-5.20); Red Cell Distribution Width 15.1 % (11.8-14.3); White Blood Cell 18.7 10^3/uL (4.4-10.8)
[2023-03-20 16:44] LABS: Albumin 4.9 g/dL (3.4-5.0); Calcium 9.1 mg/dL (8.5-10.1); Potassium 4.7 mmol/L (3.5-5.1)
[2023-03-20 16:49] LABS: BUN/Creatinine Ratio 17.7 (10.0-20.0); Bilirubin, Total 1.9 mg/dL (0.2-1.0); Total Protein 8.2 g/dL (6.4-8.2)
[2023-03-20 17:14] LABS: Urine Bacteria NONE SEEN /hpf (None Seen); Urine Blood Negative /uL (Negative); Urine Specific Gravity 1.026 (1.001-1.035); Urine WBC 2 /hpf (0 - 5)
[2023-03-20] MEDS ORDERED: InsuLIN R (HUMAN) 100 UNITS in SODIUM CHL 0.9% 99 ML IV SCH (17:15)
[2023-03-20] MEDS ORDERED: INSULIN LANTUS (GLARGINE) 1 /0.01ml (100units/ml) SC ONE (17:15)
[2023-03-20] MEDS ORDERED: DEXTROSE (50%) 50ML SYRG IV PRN (17:15)
[2023-03-20] MEDS ORDERED: metroNIDAZOLE 500MG/100ML 100 ML IV ONE (17:45)
[2023-03-20] MEDS: ACCU-CHEK COMFORT CURVE STRIP VI SCH ×5 (18:00→23:59)
[2023-03-20] MEDS ORDERED: InsuLIN REG 1unit/0.01ml Soln (100units/ml) ONE (20:51)
[2023-03-20] MEDS ORDERED: cefTRIAXone 1GM/50ML D5W 50 ML IV ONE (21:15)
[2023-03-20] MEDS ORDERED: MORPHINE SULFATE INJ 2 MG/ml SYRG IV PRN ×2 (21:15)
[2023-03-20] MEDS ORDERED: ONDANSETRON HCL 4 MG/2 ML VIAL IV PRN (21:15)
[2023-03-20] MEDS ORDERED: NITROGLYCERIN 0.4 MG SL TAB SL PRN (21:15)
[2023-03-20 22:02] LABS: BUN/Creatinine Ratio 20.5 (10.0-20.0); Calcium 8.9 mg/dL (8.5-10.1)
[2023-03-20 22:05] LABS: Lactic Acid w/Reflex 3.7 mmol/L (0.4-2.0)
[2023-03-20] MEDS ORDERED: ACCU-CHEK COMFORT CURVE STRIP VI SCH (22:30)
[2023-03-21] MEDS: ACCU-CHEK COMFORT CURVE STRIP VI SCH ×9 (01:25→13:32)
[2023-03-21 04:18] LABS: BUN/Creatinine Ratio 29.1 (10.0-20.0); Calcium 8.1 mg/dL (8.5-10.1); Potassium 4.1 mmol/L (3.5-5.1)
[2023-03-21] MEDS ORDERED: SODIUM CHLORIDE 0.9% 1,000 ML IV SCH ×3 (05:45→14:15)
[2023-03-21 06:30] LABS: Basophils # (auto) 0 10 ^3/uL (0-0.2); Basophils % (auto) 0.2 % (0.0-2.0); Eosinophils # (auto) 0 10 ^3/uL (0-0.8); Eosinophils % (auto) 0.1 % (0.0-7.0); Hematocrit 37.3 % (36.0-46.0); Hemoglobin 12.9 g/dL (12.2-16.2); Lymphocytes # (auto) 1.1 10 ^3/uL (0.4-5.4); Lymphocytes % (auto) 11.6 % (10.0-50.0); Mean Corpuscular Hemoglobin 33.2 pg (28.0-32.0); Mean Corpuscular Hgb Conc. 34.6 g/dL (32.0-36.0); Mean Corpuscular Volume 95.9 fL (80.0-100.0); Monocytes # (auto) 1.2 10 ^3/uL (0-1.3); Monocytes % (auto) 13.2 % (0.0-12.0); Neutrophils # (auto) 6.9 10 ^3/uL (1.6-8.6); Neutrophils % (auto) 74.9 % (37.0-80.0); Nucleated Red Blood Cells % 0.1 %; Red Blood Cells 3.89 10^6/uL (4.0-5.20); Red Cell Distribution Width 14.5 % (11.8-14.3); White Blood Cell 9.1 10^3/uL (4.4-10.8)
[2023-03-21 06:31] LABS: Albumin 3.8 g/dL (3.4-5.0); Potassium 4.1 mmol/L (3.5-5.1)
[2023-03-21] MEDS: metroNIDAZOLE 500MG/100ML 100 ML IV SCH ×2 (06:34→14:15)
[2023-03-21 06:35] LABS: BUN/Creatinine Ratio 27.7 (10.0-20.0); Bilirubin, Total 1.2 mg/dL (0.2-1.0); Total Protein 6.7 g/dL (6.4-8.2)
[2023-03-21] MEDS ORDERED: cefTRIAXone 1GM/50ML D5W 50 ML IV SCH (09:00)
[2023-03-21 09:32] LABS: BUN/Creatinine Ratio 31.4 (10.0-20.0); Potassium 4.1 mmol/L (3.5-5.1)
[2023-03-21] MEDS ORDERED: INSULIN LANTUS (GLARGINE) 1 /0.01ml (100units/ml) SC SCH (10:00)
[2023-03-21] MEDS ORDERED: DEXTROSE (50%) 50ML SYRG IV PRN (14:15)
[2023-03-21] MEDS ORDERED: InsuLIN REG 1unit/0.01ml Soln (100units/ml) SC SCH (17:00)
[2023-03-21] MEDS ORDERED: ACCU-CHEK COMFORT CURVE STRIP VI SCH (17:00)
[2023-03-21 19:23] VITALS: BP 122/64
[2023-03-21] MEDS ORDERED: GABAPENTIN 300 MG CAP PO SCH (22:00)
[2023-03-22] MEDS ORDERED: LEVOTHYROXINE SODIUM 100 MCG TAB PO SCH (07:00)
[2023-03-22] MEDS ORDERED: buPROPion HCL 75 MG TAB PO SCH (10:00)
[2023-03-22] MEDS ORDERED: SENNA 8.6 MG TAB PO SCH (10:00)
== END 2023-03-21 20:40 | disposition left against medical advice (07) | DRG 420 ==
LOC: ER 15:29 → TELE 21:11
PROVIDERS: ADMIT Nurse Practitioner; ATTEND Hospitalist
DX: E11.10 Type 2 diabetes mellitus with ketoacidosis without coma (principal); N17.0 Acute kidney failure with tubular necrosis; K57.92 Diverticulitis of intestine, part unspecified, without perforation or abscess without bleeding; K52.9 Noninfective gastroenteritis and colitis, unspecified; I10 Essential (primary) hypertension; E78.5 Hyperlipidemia, unspecified; Z53.29 Procedure and treatment not carried out because of patient's decision for other reasons; F32.A Depression, unspecified; F41.9 Anxiety disorder, unspecified; Z82.49 Family history of ischemic heart disease and other diseases of the circulatory system; Z91.013 Allergy to seafood; Z88.2 Allergy status to sulfonamides
CPT/HCPCS: 36415; 36600; 74176; 80048; 80053; 81001; 82010; 82805; 82962; 83605; 83690; 85025; 93005; 96361; 96372; 96374; 99291; G0378; J0696; J1815; J2405; J3490